=== PATIENT | male | born 1970 | race African-American/Black ===

== ENCOUNTER 2017-08-03 23:36 | Emergency (ER) | payer MEDICAID ==
[~2017-08-03] VITALS: Ht 175.3 cm; Wt 77.1 kg
[~2017-08-03 23:36] MED LIST: BENADRYL25 MG ORAL; LISINOPRIL20 MG ORAL; METOPROLOL SUCC25 MG ORAL; PAXIL10 MG ORAL; SEROQUEL200 MG ORAL; SIMVASTATIN20 MG ORAL
[2017-08-03 23:40] VITALS: BP 120/81
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
[2017-08-04] LABS: BASOPHILS % (AUTO) 2.1 % (0.0-2.0); EOSINOPHILS % (AUTO) 4.1 % (0.0-3.0); HEMATOCRIT 44.2 % (42.0-52.0); LYMPHOCYTES % (AUTO) 49.1 % (20.0-45.0); MEAN CORPUSCULAR VOLUME 94 FL (80-99); MONOCYTES % (AUTO) 8.2 % (1.0-10.0); NEUTROPHILS % (AUTO) 36.6 % (45.0-75.0); PLATELET COUNT 137 K/UL (150-450); RED BLOOD COUNT 4.68 M/UL (4.70-6.10); RED CELL DISTRIBUTION WIDTH 12.2 % (11.6-14.8); WHITE BLOOD COUNT 5.8 K/UL (4.8-10.8)
[2017-08-04] MEDS ORDERED: Heparin 5000 units/ml inj IV ONE
[2017-08-04 00:10] VITALS: BP 120/81
[2017-08-04 00:13] LABS: ANION GAP 5 mmol/L (5-15); BLOOD UREA NITROGEN 24 mg/dL (7-18); CALCIUM 9.5 MG/DL (8.5-10.1); CARBON DIOXIDE 29 MMOL/L (21-32); CHLORIDE 102 MMOL/L (98-107); CREATININE 1.6 MG/DL (0.55-1.30); POTASSIUM 3.8 MMOL/L (3.5-5.1); SODIUM 136 MMOL/L (136-145)
[2017-08-04 00:26] LABS: ALANINE AMINOTRANSFERASE 59 U/L (12-78); ALBUMIN 3.1 G/DL (3.4-5.0); ALBUMIN/GLOBULIN RATIO 0.7 (1.0-2.7); ALKALINE PHOSPHATASE 175 U/L (46-116); ASPARTATE AMINO TRANSFERASE 42 U/L (15-37); BILIRUBIN,TOTAL 0.2 MG/DL (0.2-1.0); CKMB 4.6 NG/ML (0.0-3.6); CREATINE KINASE 369 U/L (26-308)
--- NOTE | 2017-08-04 09:57 | Diagnostic Imaging Report ---
Indication: Chest pain Technique: One view of the chest Comparison: 08/09/2015 Findings: The heart is is borderline enlarged. The lungs and pleural spaces are clear. There is no significant interim change Impression: Borderline cardiomegaly. No acute process
--- NOTE | 2017-08-05 08:34 | Cardiology Report ---
APPROVED REPORT EKG Measurement Heart [id number] ID [id number] Normal sinus rhythm Right atrial enlargement Left ventricular hypertrophy with repolarization abnormality Prolonged QT Abnormal ECG
== END 2017-08-04 00:10 | disposition short-term general hospital (02) ==
LOC: EDBD 23:36 → EMR 23:51
DX: I21.3 ST elevation (STEMI) myocardial infarction of unspecified site (principal); R07.9 Chest pain, unspecified; I10 Essential (primary) hypertension; E11.9 Type 2 diabetes mellitus without complications; Z79.82 Long term (current) use of aspirin; Z95.5 Presence of coronary angioplasty implant and graft
CPT/HCPCS: 36415; 71045; 80053; 82550; 82553; 84484; 85025; 85730; 93005; 96374; 99284; J1644

== ENCOUNTER 2018-03-28 23:15 | Emergency (ER) | payer MEDICAID ==
[~2018-03-28] VITALS: Ht 175.3 cm; Wt 90.7 kg
[2018-03-28 23:25] VITALS: BP 171/91
[2018-03-28] MEDS ORDERED: LORazepam Inj 2mg/ml 1ml IV ONE (23:30)
[2018-03-29 00:13] LABS: ANION GAP 9 mmol/L (5-15); BLOOD UREA NITROGEN 9 mg/dL (7-18); CALCIUM 9.2 MG/DL (8.5-10.1); CARBON DIOXIDE 26 MMOL/L (21-32); CHLORIDE 105 MMOL/L (98-107); CREATININE 1.1 MG/DL (0.55-1.30); POTASSIUM 3.9 MMOL/L (3.5-5.1); SODIUM 140 MMOL/L (136-145)
[2018-03-29 00:16] LABS: BASOPHILS % (AUTO) 2.6 % (0.0-2.0); EOSINOPHILS % (AUTO) 5.3 % (0.0-3.0); HEMOGLOBIN 16.4 G/DL (14.2-18.0); LYMPHOCYTES % (AUTO) 50.9 % (20.0-45.0); MEAN CORPUSCULAR VOLUME 94 FL (80-99); MONOCYTES % (AUTO) 7.1 % (1.0-10.0); NEUTROPHILS % (AUTO) 34.1 % (45.0-75.0); PLATELET COUNT 145 K/UL (150-450); RED BLOOD COUNT 5.23 M/UL (4.70-6.10); RED CELL DISTRIBUTION WIDTH 11.8 % (11.6-14.8); WHITE BLOOD COUNT 6.2 K/UL (4.8-10.8)
[2018-03-29 00:18] LABS: ALANINE AMINOTRANSFERASE 105 U/L (12-78); ALBUMIN 3.2 G/DL (3.4-5.0); ALBUMIN/GLOBULIN RATIO 0.7 (1.0-2.7); ALKALINE PHOSPHATASE 150 U/L (46-116); ASPARTATE AMINO TRANSFERASE 71 U/L (15-37); BILIRUBIN,TOTAL 0.2 MG/DL (0.2-1.0)
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
[2018-03-29 02:00] VITALS: BP 145/93
[2018-03-29 07:35] VITALS: BP 132/84
[2018-03-29 12:10] LABS: APPEARANCE,URINE CLEAR; BILIRUBIN, URINE NEGATIVE (NEGATIVE); COLOR,URINE PALE YELLOW; GLUCOSE, URINE (UA) 4+ (NEGATIVE); KETONES,URINE NEGATIVE (NEGATIVE); LEUKOCYTE ESTERASE ,URINE NEGATIVE (NEGATIVE); NITRITE,URINE NEGATIVE (NEGATIVE); PH,URINE 8 (4.5-8.0); PROTEIN,URINE 3+ (NEGATIVE); UROBILINOGEN,URINE NORMAL MG/DL (0.0-1.0)
[2018-03-29 13:13] VITALS: BP 148/76
[2018-03-29 14:31] VITALS: BP 148/76
== END 2018-03-29 14:33 ==
LOC: EDBD 23:15 → EMR 23:57
DX: F14.10 Cocaine abuse, uncomplicated (principal); F10.129 Alcohol abuse with intoxication, unspecified; F29 Unspecified psychosis not due to a substance or known physiological condition; R44.0 Auditory hallucinations; I10 Essential (primary) hypertension; E11.9 Type 2 diabetes mellitus without complications; Z86.73 Personal history of transient ischemic attack (TIA), and cerebral infarction without residual deficits; I25.2 Old myocardial infarction; F20.9 Schizophrenia, unspecified
CPT/HCPCS: 36415; 80053; 80307; 80329; 81001; 85025; 96361; 96374; 99285

== ENCOUNTER 2019-06-02 05:17 | Inpatient (IN) | payer MEDICAID ==
[~2019-06-02] VITALS: Ht 175.3 cm; Wt 85.7 kg
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
--- NOTE | 2019-06-02 05:29 | NUR ---
ED Nurse Note: IV established on right AC with 20g. Blood drawn and sent to lab. Line patent and intact.
[2019-06-02] MEDS ORDERED: Acetaminophen 500mg (ES) tab ORAL ONE (05:30)
[2019-06-02] MEDS ORDERED: Tetracaine 0.5% Opth 4ml Soln LEFT EYE ONE (05:30)
[2019-06-02] MEDS ORDERED: Fluorescein Strips BOTH EYES ONE (05:30)
[2019-06-02] MEDS ORDERED: Tetanus/Diptheria/Pertussis IM ONE (05:30)
[2019-06-02] MEDS ORDERED: fentaNYL 100 mcg/2 mL IV ONE (05:45)
[2019-06-02 05:49] LABS: BASOPHILS % (AUTO) 0.9 % (0.0-2.0); EOSINOPHILS % (AUTO) 3.3 % (0.0-3.0); HEMATOCRIT 49.7 % (42.0-52.0); HEMOGLOBIN 16.4 G/DL (14.2-18.0); LYMPHOCYTES % (AUTO) 37.9 % (20.0-45.0); MEAN CORPUSCULAR VOLUME 95 FL (80-99); MONOCYTES % (AUTO) 6.9 % (1.0-10.0); PLATELET COUNT 157 K/UL (150-450); RED BLOOD COUNT 5.25 M/UL (4.70-6.10); WHITE BLOOD COUNT 5.8 K/UL (4.8-10.8)
--- NOTE | 2019-06-02 05:49 | NUR ---
ED Nurse Note: [employer] at bedside.
[2019-06-02 05:50] VITALS: BP 128/88
[2019-06-02 06:00] LABS: ANION GAP 8 mmol/L (5-15); BLOOD UREA NITROGEN 22 mg/dL (7-18); CALCIUM 9.1 MG/DL (8.5-10.1); CARBON DIOXIDE 25 MMOL/L (21-32); CHLORIDE 104 MMOL/L (98-107); CREATININE 1.4 MG/DL (0.55-1.30); POTASSIUM 4.8 MMOL/L (3.5-5.1); SODIUM 136 MMOL/L (136-145)
[2019-06-02 06:05] LABS: ALANINE AMINOTRANSFERASE 90 U/L (12-78); ALBUMIN 2.6 G/DL (3.4-5.0); ALBUMIN/GLOBULIN RATIO 0.6 (1.0-2.7); ALKALINE PHOSPHATASE 168 U/L (46-116); ASPARTATE AMINO TRANSFERASE 65 U/L (15-37); BILIRUBIN,TOTAL 0.4 MG/DL (0.2-1.0)
--- NOTE | 2019-06-02 06:05 | NUR ---
ED Nurse Note: Fentanyl 50mcg wasted with José Luis NIÑO.
--- NOTE | 2019-06-02 06:06 | NUR ---
ordnance engineering technician with XR at bedside Addendum: 06/02/19 at 0606 by [email or web address] ED Nurse Note: ordnance engineering technician with XR at bedside
--- NOTE | 2019-06-02 06:20 | NUR ---
ED Nurse Note: Patient going to CT accompanied by héctor hickman via wheelchair.
--- NOTE | 2019-06-02 06:58 | NUR ---
ED Nurse Note: Pt back from CT accompanied by meat grader via wheelchair. Pt on monitor, NAD, VSS. Will continue to monitor.
--- NOTE | 2019-06-02 07:08 | NUR ---
HAND-OFF: Report given to Odilia NIÑO.
[2019-06-02 07:15] VITALS: BP 136/84
--- NOTE | 2019-06-02 07:15 | NUR ---
ED Nurse Note: Received pt on bed lying on side lying position, asleep with no signs of any respiratory distress. Hooked to saturation diver.
--- NOTE | 2019-06-02 08:20 | NUR ---
ED Nurse Note: Xray at bedside.
--- NOTE | 2019-06-02 08:27 | NUR ---
ED Nurse Note: Xray done.
--- NOTE | 2019-06-02 08:45 | NUR ---
ED Nurse Note: ERMD at bedside. Eye exam done. Snack provided.
--- NOTE | 2019-06-02 09:13 | Diagnostic Imaging Report ---
Indication: Facial pain status post injury Technique: CT maxillofacial was performed utilizing automated exposure control without intravenous contrast material. Axial and coronal images were generated. CT dose: Total DLP 556.9 mGycm; CTDI vol a 4 mGy Comparison: None Findings: Marked left periorbital soft tissue swelling. There is also soft tissue swelling about the right frontoparietal scalp with some foci of subcutaneous gas suggesting laceration. There is also right infraorbital soft tissue swelling. There is a lucency at the left orbital floor suspicious for nondisplaced fracture (series 7 image #13) particularly given the layering hyperdense fluid/blood in the left maxillary sinus. There is soft tissue stranding with intraluminal fat suggesting of injury/mild contusion with possible small hematoma. The left globe retains its round shaped. There is mild right-sided proptosis. Extraocular muscles appear symmetric. Age indeterminate but possibly chronic fracture deformity of the right lamina papyracea. There is a nondisplaced fracture of the posterolateral wall of the right maxillary sinus and near complete opacification of the right maxillary sinus. The mandible is intact. IMPRESSION: * Marked left periorbital soft tissue swelling with associated intraorbital hemorrhage and mild left proptosis. Correlation with ophthalmic exam recommended. * Lucency at the left orbital floor suspicious for nondisplaced fracture (series 7 image #13). * Nondisplaced fracture of the posterolateral wall of the right maxillary sinus. * Age indeterminate fracture deformity of the right lamina papyracea. This corresponds with the preliminary report. The CT scanner at [facility] is accredited by the [employer] and the scans are performed using protocols designed to limit radiation exposure to as low as reasonably achievable to attain images of sufficient resolution adequate for diagnostic evaluation.
--- NOTE | 2019-06-02 09:13 | Diagnostic Imaging Report ---
Indication: Headache/pain status post injury/trauma Technique: Continuous helical CT scanning of the head was performed utilizing automated exposure control without intravenous contrast material. Axial and coronal reconstructions were obtained. Comparison: None CT dose: Total DLP 1394.9 mGycm; CTDI vol 62.7 mGy Findings: There is no acute intracranial hemorrhage, mass effect or shift of the midline structures. There is a small focus of encephalomalacia in the right frontal lobe which may be due to chronic ischemia/infarct or chronic injury. The ventricles, cisterns and sulci are within normal limits for age. There is right frontoparietal soft tissue swelling with some foci of subcutaneous gas suggesting laceration. Correlation with physical exam recommended. Marked left periorbital soft tissue swelling is noted with some intraorbital hemorrhage and mild left-sided proptosis. Mastoid air cells are clear. No depressed calvarial fracture identified. There is a chronic appearing fracture deformity of the right medial orbital wall/lamina papyracea. Paranasal sinus disease noted with mucosal thickening and partial opacification of ethmoid air cells and frontal sinuses. IMPRESSION: Marked left periorbital soft tissue swelling with associated intraorbital hemorrhage and mild left proptosis. Correlation with ophthalmic exam recommended. Mild right frontoparietal scalp soft tissue swelling with likely associated laceration. Correlation with physical exam recommended. No acute depressed skull fracture. Chronic appearing fracture deformity of the right lamina papyracea. Paranasal sinus disease. No evidence of acute intracranial hemorrhage, mass effect or cortical edema. Small focus of encephalomalacia in the right frontal lobe which may be related to chronic infarct or injury. Correlate with clinical history. The CT scanner at [facility] is accredited by the [employer] and the scans are performed using protocols designed to limit radiation exposure to as low as reasonably achievable to attain images of sufficient resolution adequate for diagnostic evaluation.
--- NOTE | 2019-06-02 09:18 | Diagnostic Imaging Report ---
Indication: Neck pain status post injury Technique: CT cervical spine spine was performed utilizing automated exposure control without intravenous contrast material. Axial and sagittal and coronal images were generated. CT dose: Total DLP 274.1 mGycm; CTDI vol and 0.3 mGy Comparison: None Findings: No acute cervical spine fracture is identified. There are multilevel discogenic degenerative changes of the cervical spine, overall mild severity. Degenerative changes are manifest by disc space narrowing, endplate sclerosis and productive changes as well as mild multilevel facet and uncovertebral joint hypertrophy. Degenerative changes result in varying degrees of central canal and foraminal stenosis without focus of high-grade bony central canal or bony foraminal sinuses. There is mild to moderate bilateral foraminal narrowing at C3-C4 related to facet arthropathy. These note that the central cord, disks and nerve roots are better evaluated on MRI, which can be obtained for more sensitive evaluation as clinically indicated. Imaged portions of the airway are patent. Imaged lung apices are grossly clear. Imaged thyroid unremarkable. There are atherosclerotic vascular calcifications. IMPRESSION: Degenerative changes of the cervical spine. No evidence of acute cervical spine fracture. The CT scanner at [facility] is accredited by the [employer] and the scans are performed using protocols designed to limit radiation exposure to as low as reasonably achievable to attain images of sufficient resolution adequate for diagnostic evaluation.
[2019-06-02 09:35] VITALS: BP 145/82
[2019-06-02] MEDS ORDERED: Morphine Sulfate 4mg/ml Inj (IV USE ONLY) IVP ONE (10:45)
[2019-06-02 11:45] VITALS: BP 89/59
--- NOTE | 2019-06-02 13:45 | NUR ---
TRANSFER TO FLOOR: Patient transferred to as ordered, per Dr. Yañez . Report given to SALINAS Gaona. Belongings and medications given to receiving nurse. Family and or S/O informed of transfer.
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
[2019-06-02] MEDS ORDERED: UNOBMED (14:04)
[2019-06-02] MEDS ORDERED: D5 1/2NS 1,000 ML IV SCH (14:30)
--- NOTE | 2019-06-02 14:30 | NUR ---
NURSE NOTES: Page Dr. Yañez. Admission order received, entered, noted, and carried out. MD made aware patient stated history seizure, DM. Per MD call patient pharmacy to get reconcile med. Called [facility] tele: [phone] ext [phone], faxed requesting foam [phone].
[2019-06-02] MEDS: Morphine Sulfate 2mg/ml Inj(IV/IM USE ONLY) IVP PRN ×2 (15:24→20:48)
[2019-06-02 16:00] VITALS: BP 130/81
[2019-06-02] MEDS: NovoLOG Insulin Flexpen SUBQ SCH ×2 (16:27→20:49)
--- NOTE | 2019-06-02 16:40 | NUR ---
NURSE NOTES: Dr. Yañez made aware patient BS 310, history DM, eating well. Per MD change D5 1/2NS to 1/2NS. Order noted, entered, carried out. Will continue to monitor.
--- NOTE | 2019-06-02 18:00 | NUR ---
NURSE NOTES: Dr. Goode made aware of troponin level elevated from 0.023 to 0.067. No new order at this time. Will continue to monitor.
--- NOTE | 2019-06-02 18:13 | Diagnostic Imaging Report ---
Indication: Chest pain Technique: XRAY Chest 1v Comparison: 08/03/2017 Findings: Cardiomegaly is stable. Mediastinal contours are sharp. There is no focal airspace consolidation. No pleural effusion or pneumothorax. No evidence to suggest pulmonary edema. No acute osseous abnormality appreciated. Impression: No radiographic evidence of acute cardiopulmonary disease. Stable borderline cardiomegaly.
--- NOTE | 2019-06-02 19:54 | NUR ---
HAND-OFF: Report given to SALINAS Segovia.
--- NOTE | 2019-06-02 19:56 | NUR ---
NURSE NOTES: Received patient from SALINAS Gaona. Patient asleep in bed comfortably. No signs of pain, distress, or shortness of breath. Patient ambulates and able to make needs known. IV site checked, no signs of redness, bleeding, or infiltration noted, 0.45% NS running at 60 ml/hr. Seizure precautions in place, side rails padded and suction at the bedside. Bed in lowest position, side rails up x2, brakes on, and call light within reach. Will continue with plan of care.
[2019-06-02 20:00] VITALS: BP 142/90
--- NOTE | 2019-06-02 21:31 | History and Physical Report ---
DATE OF ADMISSION: 06/02/2019 CONSULTANTS: 1. Ed Goode M.D. 2. Junior Garland M.D. 3. Ke Sanchez M.D. CHIEF COMPLAINT: Chest pain, diabetes, and periorbital hematoma. BRIEF HISTORY: This is a 49-year-old male, who lives at home, presents with history of sharp chest pain, intermittent, no loss of consciousness, came to [facility], diagnosed with the above, and admitted to telemetry for further care. Currently, calm in bed. No complaint. No chest pain. No shortness of breath. No nausea, vomiting, or diarrhea. PAST MEDICAL HISTORY: Includes STEMI, diabetes, and seizures. PAST SURGICAL HISTORY: Stomach cyst. MEDICATIONS: Include insulin, morphine, and Tylenol. ALLERGIES: Denies. SOCIAL HISTORY: Positive smoke. Positive alcohol. Positive cocaine use. PHYSICAL EXAMINATION: GENERAL: Calm in bed, oriented x3, in no acute distress. VITAL SIGNS: Temperature 97 degrees, pulse 89, respirations 19, and blood pressure 137/101. CARDIOVASCULAR: No murmurs. LUNGS: Distant and clear. ABDOMEN: Bowel sounds positive. Nontender. Nondistended. EXTREMITIES: No cyanosis. No edema. LABORATORY DATA: Laboratories at this time show CBC is normal. BMP show BUN and creatinine are 22 and 1.4. Glucose 186. Troponin 0.023. Albumin 2.6. INR is 1.0. ASSESSMENT: 1. Chest pain. 2. Diabetes. 3. History of STEMI. 4. Periorbital hematoma. 5. Drug abuse. 6. Malnutrition. 7. Seizure. PLAN: 1. Blood pressure, blood sugar, and seizure control. 2. Dietary followup. 3. Troponin q.8 h. x3. 4. EKG in the a.m. 5. Detox. 6. Resume home medications. 7. PT and dietary evaluation. Sharath Yañez D.O. DR: SHRUTHI JOB#: [id number] CC:
--- NOTE | 2019-06-02 21:55 | NUR ---
NURSE NOTES: Paged Dr. Yañez regarding patient's complaint of anxiety and trouble sleeping. Awaiting callback. Will continue with plan of care.
[2019-06-02] MEDS: Zolpidem 5mg tab ORAL PRN (23:16)
--- NOTE | 2019-06-02 23:39 | Cardiology Progress Note ---
Assessment/Plan Assessment/Plan The patient is seen and examined, full consult note is dictated. Objective Last 24 Hour Vital Signs Date Time Temp Pulse Resp B/P (MAP) Pulse Ox O2 Delivery O2 Flow Rate FiO2 06/02/19 21:00 Room Air 06/02/19 20:00 80 06/02/19 20:00 99.2 85 18 142/90 (107) 95 06/02/19 16:00 75 06/02/19 16:00 97.0 100 18 130/81 (97) 95 06/02/19 14:12 Room Air 06/02/19 13:45 97.8 79 19 137/101 100 Room Air 06/02/19 11:45 98.6 79 17 89/59 100 Room Air 06/02/19 09:35 98.4 81 18 145/82 100 Room Air 06/02/19 07:15 98.8 73 19 136/84 100 Room Air 06/02/19 06:13 98.6 06/02/19 06:00 98.6 06/02/19 05:50 98.6 78 18 128/88 98 Room Air 06/02/19 05:18 98.6 80 18 128/88 (101) 98 Intake and Output 06/01/19 06/02/19 19:00 07:00 Intake Total 0 ml Balance 0 ml Intake Oral 0 ml Laboratory Tests Test 06/02/19 05:22 06/02/19 15:45 06/02/19 22:40 White Blood Count 5.8 K/UL (4.8-10.8) Red Blood Count 5.25 M/UL (4.70-6.10) Hemoglobin 16.4 G/DL (14.2-18.0) Hematocrit 49.7 % (42.0-52.0) Mean Corpuscular Volume 95 FL (80-99) Mean Corpuscular Hemoglobin 31.2 PG (27.0-31.0) H Mean Corpuscular Hemoglobin Concent 33.0 G/DL (32.0-36.0) Red Cell Distribution Width 11.0 % (11.6-14.8) L Platelet Count 157 K/UL (150-450) Mean Platelet Volume 10.3 FL (6.5-10.1) H Neutrophils (%) (Auto) 51.0 % (45.0-75.0) Lymphocytes (%) (Auto) 37.9 % (20.0-45.0) Monocytes (%) (Auto) 6.9 % (1.0-10.0) Eosinophils (%) (Auto) 3.3 % (0.0-3.0) H Basophils (%) (Auto) 0.9 % (0.0-2.0) Prothrombin Time 10.7 SEC (9.30-11.50) Prothromb Time International Ratio 1.0 (0.9-1.1) Activated Partial Thromboplast Time 24 SEC (23-33) Sodium Level 136 MMOL/L (136-145) Potassium Level 4.8 MMOL/L (3.5-5.1) Chloride Level 104 MMOL/L (98-107) Carbon Dioxide Level 25 MMOL/L (21-32) Anion Gap 8 mmol/L (5-15) Blood Urea Nitrogen 22 mg/dL (7-18) H Creatinine 1.4 MG/DL (0.55-1.30) H Estimat Glomerular Filtration Rate > 60 mL/min (>60) Glucose Level 186 MG/DL (74-106) H Calcium Level 9.1 MG/DL (8.5-10.1) Total Bilirubin 0.4 MG/DL (0.2-1.0) Aspartate Amino Transf (AST/SGOT) 65 U/L (15-37) H Alanine Aminotransferase (ALT/SGPT) 90 U/L (12-78) H Alkaline Phosphatase 168 U/L (46-116) H Troponin I 0.023 ng/mL (0.000-0.056) 0.067 ng/mL (0.000-0.056) 0.181 ng/mL (0.000-0.056) Total Protein 7.1 G/DL (6.4-8.2) Albumin 2.6 G/DL (3.4-5.0) L Globulin 4.5 g/dL Albumin/Globulin Ratio 0.6 (1.0-2.7) L Microbiology Date/Time Source Procedure Growth Status 06/02/19 09:00 Rectum Received Ed Goode MD Jun 02, 2019 23:39
--- NOTE | 2019-06-02 23:39 | NUR ---
NURSE NOTES: Dr. Goode notified of patient's troponin level of 0.181. Dr. Goode will examine patient. Will continue with plan of care.
[2019-06-03] VITALS: BP 146/93
--- NOTE | 2019-06-03 | NUR ---
NURSE NOTES: Dr. Goode examined patient and put in new orders. Will continue with plan of care.
[2019-06-03] MEDS: Enoxaparin 80mg Inj SUBQ SCH ×3 (00:23→20:46)
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
[2019-06-03] MEDS: Morphine Sulfate 2mg/ml Inj(IV/IM USE ONLY) IVP PRN ×4 (03:45→20:29)
[2019-06-03 04:00] VITALS: BP 151/99
--- NOTE | 2019-06-03 05:44 | NUR ---
NURSE NOTES: Paged Dr. Yañez regarding patient's request for breathing treatment, reports regularly taking albuterol inhaler at home. No shortness of breath noted, will continue to monitor.
[2019-06-03] MEDS: NovoLOG Insulin Flexpen SUBQ SCH ×4 (06:40→20:45)
--- NOTE | 2019-06-03 07:20 | NUR ---
NURSE NOTES: Received orders from Dr. Yañez regarding albuterol inhaler. Noted and carried out. Will continue with plan of care.
--- NOTE | 2019-06-03 07:28 | NUR ---
HAND-OFF: Report given to SALINAS Coon. Patient in stable condition, pland of care endorsed.
[2019-06-03 07:30] LABS: BASOPHILS % (AUTO) 1.9 % (0.0-2.0); EOSINOPHILS % (AUTO) 5.4 % (0.0-3.0); HEMATOCRIT 43.4 % (42.0-52.0); HEMOGLOBIN 14.5 G/DL (14.2-18.0); LYMPHOCYTES % (AUTO) 51.9 % (20.0-45.0); MEAN CORPUSCULAR VOLUME 93 FL (80-99); MONOCYTES % (AUTO) 11.6 % (1.0-10.0); NEUTROPHILS % (AUTO) 29.2 % (45.0-75.0); PLATELET COUNT 158 K/UL (150-450); RED BLOOD COUNT 4.66 M/UL (4.70-6.10); RED CELL DISTRIBUTION WIDTH 10.8 % (11.6-14.8); WHITE BLOOD COUNT 5.3 K/UL (4.8-10.8)
[2019-06-03 07:39] LABS: ANION GAP 7 mmol/L (5-15); BLOOD UREA NITROGEN 18 mg/dL (7-18); CALCIUM 8.3 MG/DL (8.5-10.1); CARBON DIOXIDE 26 MMOL/L (21-32); CHLORIDE 105 MMOL/L (98-107); CREATININE 1.3 MG/DL (0.55-1.30); POTASSIUM 3.9 MMOL/L (3.5-5.1); SODIUM 138 MMOL/L (136-145)
[2019-06-03 08:00] VITALS: BP 151/101
[2019-06-03] MEDS: Aspirin EC 81mg tab ORAL SCH (09:01)
--- NOTE | 2019-06-03 10:20 | NUR ---
PT EVALUATION NOTE Patient seen for initial evaluation. Patient presents with generalized weakness and impaired balance which affects patient's ability to perform mobility tasks safely. Patient also c/o increased pain with mobility. Patient requires SBA for bed mobility transfers, CGA for ambulation due to unsteady gait. Ambulation distance limited to 25 ft due to pain. Patient will benefit from skilled inpatient PT intervention to address strength, balance and safety for improved level of functional mobility. Recommend discharge home once medically cleared by MD. No DME needs anticipated at this time. Addendum: 06/03/19 at 1255 by VANCE MAGAÑA PT Amended: Links added.
[2019-06-03 12:00] VITALS: BP 146/93
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
--- NOTE | 2019-06-03 15:33 | NUR ---
TRANSFER UPDATE CLINICALS FAXED TO [facility] CC F: [phone] HMO WILL NEED TO APPROVE
[2019-06-03 15:46] VITALS: BP 149/103
--- NOTE | 2019-06-03 19:31 | NUR ---
HAND-OFF: Report given to CHAD NIÑO.
--- NOTE | 2019-06-03 19:35 | NUR ---
NURSE NOTES: Received patient from SALINAS Coon. Patient resting comfortably in bed, no signs of distress, shortness of breath, or pain noted. Patient ambulates and able to make needs known. IV site checked, intact and patent, no signs of bleeding, infiltration, or redness noted. 0.45% NS running at 60 ml/hr. Seizure precautions in place, side rails padded and suction at the bedside. Fall education provided. Bed in lowest position, brakes on, side rails up x2, and call light within reach. Will continue with plan of care.
[2019-06-03 20:00] VITALS: BP 154/92
[2019-06-03] MEDS: Atorvastatin 80mg tab ORAL SCH (20:29)
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
--- NOTE | 2019-06-03 20:46 | NUR ---
NURSE NOTES: Patient refused Lovenox, risks and benefits explained. Will continue to monitor.
[2019-06-03] MEDS: Albuterol 90mcg Inhaler 8gm INH PRN (20:48)
--- NOTE | 2019-06-03 20:50 | NUR ---
NURSE NOTES: Paged Dr. Yañez regarding patient's request for PRN bowel movement medications and anxiety/insomnia medication. Awaiting callback. Will continue to monitor.
--- NOTE | 2019-06-03 21:04 | NUR ---
NURSE NOTES: Dr. Goode called back and would like to continue with transferring patient to ICU for amiodarone drip. Will continue with plan of care. Addendum: 06/03/19 at 2106 by Juliette Mariscal RN WRONG PATIENT.
--- NOTE | 2019-06-03 22:00 | NUR ---
NURSE NOTES: Received orders from Dr. Yañez for bowel movement medications. Noted and carried out.
[2019-06-03] MEDS: Zolpidem 5mg tab ORAL PRN (22:08)
[2019-06-03] MEDS ORDERED: Docusate 100mg cap ORAL PRN (22:30)
[2019-06-04] VITALS: BP 152/93
[2019-06-04] MEDS: Morphine Sulfate 2mg/ml Inj(IV/IM USE ONLY) IVP PRN ×4 (06:11→19:57)
[2019-06-04] MEDS: NovoLOG Insulin Flexpen SUBQ SCH ×4 (06:29→20:07)
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
--- NOTE | 2019-06-04 07:30 | NUR ---
HAND-OFF: Report given to SALINAS Palm. Patient in stable condition and plan of care endorsed.
--- NOTE | 2019-06-04 07:30 | NUR ---
NURSE NOTES: Report received from Florin NIÑO. Pt alert and oriented x4 and able to make needs known. Bed in lowest position and locked. Side railsx2 up for safety. IV site in RAC 20G running with 60cc/hr patent and asymptomatic. No c/o chest pain of SOB. But c/o of inability to sleep. Will page Dr. Yañez for follow up. Will continue to plan of care.
[2019-06-04] MEDS: Albuterol ud Inhalation HHN SCH ×4 (07:37→19:30)
[2019-06-04 07:56] LABS: BASOPHILS % (AUTO) 1.3 % (0.0-2.0); EOSINOPHILS % (AUTO) 5.7 % (0.0-3.0); HEMATOCRIT 45.5 % (42.0-52.0); HEMOGLOBIN 15.5 G/DL (14.2-18.0); LYMPHOCYTES % (AUTO) 49.4 % (20.0-45.0); MEAN CORPUSCULAR VOLUME 93 FL (80-99); MONOCYTES % (AUTO) 10.4 % (1.0-10.0); NEUTROPHILS % (AUTO) 33.2 % (45.0-75.0); PLATELET COUNT 150 K/UL (150-450); RED CELL DISTRIBUTION WIDTH 11.1 % (11.6-14.8); WHITE BLOOD COUNT 5.4 K/UL (4.8-10.8)
[2019-06-04 08:00] VITALS: BP 186/65
[2019-06-04 08:21] LABS: ANION GAP 6 mmol/L (5-15); BLOOD UREA NITROGEN 14 mg/dL (7-18); CALCIUM 8.8 MG/DL (8.5-10.1); CARBON DIOXIDE 27 MMOL/L (21-32); CHLORIDE 105 MMOL/L (98-107); CREATININE 1.3 MG/DL (0.55-1.30); POTASSIUM 4.1 MMOL/L (3.5-5.1); SODIUM 138 MMOL/L (136-145)
[2019-06-04] MEDS: Aspirin EC 81mg tab ORAL SCH (08:55)
[2019-06-04] MEDS: Enoxaparin 80mg Inj SUBQ SCH ×2 (09:01→20:06)
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
--- NOTE | 2019-06-04 09:50 | NUR ---
NURSE NOTES: Dr. Yañez paged for meds for insomnia and possible d/c of IV hydration due to EF 45-50%. Awaiting for reply
--- NOTE | 2019-06-04 09:53 | NUR ---
TRANSFER UPDATE CONTACTED [facility] YESTERDAY AND AGAIN THIS MORNING REGARDING TRANSFER FOR CARDIAC CATH LEFT [facility] FOR [facility] ANABELLA SCHAEFER T: [phone].....AWAITING RETURN CALL CLINICALS WERE FAXED TO [facility]- YESTERDAY
[2019-06-04] MEDS: Milk of Magnesia 30ml Ud ORAL PRN (10:39)
[2019-06-04] MEDS: Albuterol 90mcg Inhaler 8gm INH PRN (11:14)
[2019-06-04 12:00] VITALS: BP 154/72
--- NOTE | 2019-06-04 12:47 | NUR ---
TRANSFER UPDATE SPOKE WITH SILVANO AT [facility] WHO STATED CHARI NEEDS TO BE CONTACTED REGARDING TRANSFER CALLED CHARI @ [phone] AND SPOKE WITH NILAY WHO STATED SHE WILL CONTACT THE APPROPRIATE MANAGER AMBULATORY AND HAVE THEM CONTACT THIS MANAGER AMBULATORY Addendum: 06/04/19 at 1533 by COOKIE ORTEZ LVN LVN SPOKE WITH CHARI MANAGER AMBULATORY RYAN @ [phone] [id number] PROVIDED HER WITH DR PYLE PHONE NUMBER FOR TO CONVERSATION STILL DO NOT HAVE APPROVAL/AUTHORIZATION FOR TRANSFER
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
[2019-06-04 16:00] VITALS: BP 171/100
--- NOTE | 2019-06-04 16:49 | NUR ---
TRANSFER UPDATE JUST RECEIVED CALL FROM RYAN MARCELINO GIVING AUTHORIZATION FOR TRANSFER TO [facility] CC FOR HEART CATH TRANSFER AUTHORIZATION FOR [facility] IS [id number] AUTH FOR [facility] IS [id number] SPOKE WITH BED CONTROL PERSON, MANJULA, AT [facility] AND PROVIDED HER WITH AUTHORIZATION DUE TO THE TIME CARDIAC ACTH WILL NOT BE DONE UNTIL FRIDAY MESSAGE LEFT FOR DR PYLE REGARDING ABOVE
--- NOTE | 2019-06-04 19:10 | NUR ---
NURSE NOTES: Received report from SALINAS Palm. Patient is awake, lying in semi bishop's; resting comfortably. A/Ox4. Able to make needs known. Denies pain at this time. No signs of acute distress noted. Checked IV site and flushed. No signs of erythema, bleeding or infiltration noted. Bed at lowest position, brakes on, siderailsx2. Call light within reach. Will continue to monitor.
--- NOTE | 2019-06-04 19:12 | NUR ---
HAND-OFF: Report given to Tabatha NIÑO. Pt remains stable.
[2019-06-04 20:00] VITALS: BP 178/97
[2019-06-04] MEDS: Atorvastatin 80mg tab ORAL SCH (20:05)
--- NOTE | 2019-06-04 22:43 | NUR ---
NURSE NOTES: Received report from SALINAS Palm. Patient is awake, lying in semi bishop's; resting comfortably. A/Ox4. Able to make needs known. Denies pain at this time. No signs of acute distress noted. Checked IV site and flushed. No signs of erythema, bleeding or infiltration noted. Bed at lowest position, brakes on, siderailsx2. Call light within reach. Will continue to monitor. Addendum: 06/04/19 at 2684 by Tabatha Reyna RN Wrong time
--- NOTE | 2019-06-04 23:52 | Cardiology Progress Note ---
Assessment/Plan Assessment/Plan 1. Non-ST elevation myocardial infarction, in view of coronary artery disease and STEMI in the past, requires to transfer to a facility with cardiac odd job laborer amenities. Continue DAPT. DC lovenox. Continue atorvastatin 80 and metoprolol for double-product control. 2. History of diabetes mellitus, continue aspirin and statin. 3. History of hypertension, continue with metoprolol. Subjective Subjective Sinus rhythm at rate of 76. Objective Last 24 Hour Vital Signs Date Time Temp Pulse Resp B/P (MAP) Pulse Ox O2 Delivery O2 Flow Rate FiO2 06/04/19 21:57 98.8 06/04/19 21:00 Room Air 06/04/19 20:27 98.8 06/04/19 20:05 76 178/97 06/04/19 20:04 178/97 06/04/19 20:00 99.0 75 16 178/97 (124) 99 06/04/19 20:00 81 06/04/19 19:33 68 20 97 Room Air 21 06/04/19 19:33 70 20 99 Room Air 21 67 20 97 06/04/19 17:34 70 171/100 06/04/19 16:00 98.8 70 20 171/100 (123) 99 06/04/19 16:00 66 06/04/19 12:00 64 06/04/19 12:00 97.1 59 20 154/72 (99) 99 06/04/19 11:18 81 20 98 Room Air 21 06/04/19 11:16 81 22 98 Room Air 21 06/04/19 11:16 81 20 98 Room Air 21 06/04/19 09:00 Room Air 06/04/19 08:55 70 186/65 06/04/19 08:11 Room Air 21 06/04/19 08:00 99.5 70 20 186/65 (105) 98 06/04/19 08:00 76 06/04/19 04:00 88 06/04/19 00:00 97.8 84 22 152/93 (112) 95 06/04/19 00:00 73 Intake and Output 06/03/19 06/04/19 19:00 07:00 Intake Total 480 ml Output Total 900 ml Balance -420 ml Intake Oral 480 ml Output Urine Total 900 ml # Voids 4 2D Echo: LVEF 65%, RVSP 53 mmHg, Mild MR, Grade I LVDD Laboratory Tests Test 06/04/19 05:54 White Blood Count 5.4 K/UL (4.8-10.8) Red Blood Count 4.90 M/UL (4.70-6.10) Hemoglobin 15.5 G/DL (14.2-18.0) Hematocrit 45.5 % (42.0-52.0) Mean Corpuscular Volume 93 FL (80-99) Mean Corpuscular Hemoglobin 31.6 PG (27.0-31.0) H Mean Corpuscular Hemoglobin Concent 34.1 G/DL (32.0-36.0) Red Cell Distribution Width 11.1 % (11.6-14.8) L Platelet Count 150 K/UL (150-450) Mean Platelet Volume 9.5 FL (6.5-10.1) Neutrophils (%) (Auto) 33.2 % (45.0-75.0) L Lymphocytes (%) (Auto) 49.4 % (20.0-45.0) H Monocytes (%) (Auto) 10.4 % (1.0-10.0) H Eosinophils (%) (Auto) 5.7 % (0.0-3.0) H Basophils (%) (Auto) 1.3 % (0.0-2.0) Sodium Level 138 MMOL/L (136-145) Potassium Level 4.1 MMOL/L (3.5-5.1) Chloride Level 105 MMOL/L (98-107) Carbon Dioxide Level 27 MMOL/L (21-32) Anion Gap 6 mmol/L (5-15) Blood Urea Nitrogen 14 mg/dL (7-18) Creatinine 1.3 MG/DL (0.55-1.30) Estimat Glomerular Filtration Rate > 60 mL/min (>60) Glucose Level 227 MG/DL (74-106) H Calcium Level 8.8 MG/DL (8.5-10.1) Microbiology Date/Time Source Procedure Growth Status 06/02/19 08:25 Nasal Nares MRSA Culture - Final NO METHICILLIN RESISTANT STAPH AUREUS... Complete 06/02/19 09:00 Rectum - Final NO CARBAPENEM-RESISTANT ENTEROBACTERI... Complete 06/02/19 08:20 Rectum VRE Culture - Final NO VANCOMYCIN RESISTANT ENTEROCOCCUS ... Complete Objective HEENT: Normocephalic. Anicteric. Left eye edema, shut. Swelling of the lower and upper eyelids. Bilateral eye visual acuity within normal limits. NECK: JVP less than 5 cm. No carotid bruits. Carotid upstrokes 2+ bilaterally. CARDIOVASCULAR: Normal S1, S2. Regular rate and rhythm. No murmurs, gallops, or rubs. PMI is at fourth intercostal space in the midclavicular line. LUNGS: Clear to auscultation bilaterally. ABDOMEN: Soft, nontender, and nondistended. No hepatosplenomegaly. Positive bowel sounds. EXTREMITIES: No evidence of edema, clubbing, or cyanosis. Ed Goode MD Jun 04, 2019 23:52
[2019-06-05] VITALS: BP 145/99
[2019-06-05] MEDS: Albuterol ud Inhalation HHN SCH ×4 (01:27→20:06)
[2019-06-05] MEDS: Morphine Sulfate 2mg/ml Inj(IV/IM USE ONLY) IVP PRN ×5 (02:16→21:56)
[2019-06-05 04:00] VITALS: BP 137/95
--- NOTE | 2019-06-05 04:40 | NUR ---
NURSE NOTES: Resting throughout the night. No significant change of condition. Will continue to monitor.
[2019-06-05] MEDS: NovoLOG Insulin Flexpen SUBQ SCH ×4 (06:36→20:59)
--- NOTE | 2019-06-05 07:00 | NUR ---
HAND-OFF: Report given to SALINAS Gallagher. Plan of care endorsed.
--- NOTE | 2019-06-05 07:10 | NUR ---
NURSE NOTES: Received report from SALINAS Mays. The patient is resting on the bed without acute distress or shortness of breath. The patient's bed in the lowest position, call light in reach, and fall and aspiration precaution reinforced. IV site intact and patent. Will confirm Dr. Goode regarding DAPT therapy. Notified the charge nurse and nursing ice house supervisor that the patient has case management order to [facility] for left heart cath and coronary angio and needs to be followed up with the caser in. Will continue plan of care.
[2019-06-05 07:43] LABS: BASOPHILS % (AUTO) 1.4 % (0.0-2.0); EOSINOPHILS % (AUTO) 4.8 % (0.0-3.0); HEMATOCRIT 45.4 % (42.0-52.0); HEMOGLOBIN 15.1 G/DL (14.2-18.0); LYMPHOCYTES % (AUTO) 50.8 % (20.0-45.0); MEAN CORPUSCULAR VOLUME 93 FL (80-99); MONOCYTES % (AUTO) 7.4 % (1.0-10.0); NEUTROPHILS % (AUTO) 35.6 % (45.0-75.0); PLATELET COUNT 129 K/UL (150-450); RED BLOOD COUNT 4.86 M/UL (4.70-6.10); WHITE BLOOD COUNT 3.7 K/UL (4.8-10.8)
[2019-06-05 08:00] VITALS: BP 142/95
[2019-06-05 08:04] LABS: ANION GAP 5 mmol/L (5-15); BLOOD UREA NITROGEN 20 mg/dL (7-18); CALCIUM 8.9 MG/DL (8.5-10.1); CARBON DIOXIDE 26 MMOL/L (21-32); CHLORIDE 104 MMOL/L (98-107); CREATININE 1.4 MG/DL (0.55-1.30); POTASSIUM 4.1 MMOL/L (3.5-5.1); SODIUM 135 MMOL/L (136-145)
--- NOTE | 2019-06-05 08:30 | NUR ---
NURSE NOTES: Clarification made regarding DAPT therapy with Dr. Goode. Carried out the order. The patient is stable without acute distress or shortness of breath. Will continue plan of care.
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
[2019-06-05] MEDS ORDERED: Enoxaparin 40mg Inj SUBQ SCH (09:00)
--- NOTE | 2019-06-05 09:00 | NUR ---
NURSE NOTES: The charge nurse contacted the director case management to get update regarding transferring order to [facility] for cardiac cath. Per director case management, they are still working on the case. The patient is stable without acute distress or shortness of breath. Will continue plan of care.
[2019-06-05] MEDS: Aspirin EC 81mg tab ORAL SCH (09:02)
[2019-06-05] MEDS: Metoprolol Tartrate 50mg tab ORAL SCH ×2 (09:02→20:49)
[2019-06-05] MEDS: Enoxaparin 40mg Inj SUBQ SCH (09:04)
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
--- NOTE | 2019-06-05 10:20 | NUR ---
PT NOTE: PT interventions withheld per SALINAS Gallagher, due to cardiac precautions. Please follow up tomorrow.
--- NOTE | 2019-06-05 10:27 | NUR ---
NURSE NOTES: Due to 3 Lead EKG rhythm change, 12 lead EKG taken per order. Notified to Dr. Goode regarding EKG result. No new order yet. Will continue plan of care.
[2019-06-05 12:00] VITALS: BP 136/77
--- NOTE | 2019-06-05 13:30 | NUR ---
NURSE NOTES: No new order from Dr. Goode. No new update from nurse case manager or charge nurse. The patient is stable without acute distress or shortness of breath. Will continue plan of care.
[2019-06-05 16:00] VITALS: BP 122/69
--- NOTE | 2019-06-05 18:00 | NUR ---
NURSE NOTES: The patient is stable without acute distress or shortness of breath. No new order from Dr. Goode. No update from vocational case manager regarding transfer to [facility] for cardiac cath. Contacted vocational case manager for update of [facility], but no arrangement made yet. Will continue plan of care.
--- NOTE | 2019-06-05 19:15 | NUR ---
HAND-OFF: Report given to SALINAS Lloyd. The patient is sleeping on the bed without acute distress or shortness of breath. The patient's bed in the lowest position, call light in reach, and fall, aspiration, and seizure precaution reinforced. IV site intact and patent. Still waiting for status update for transferring to [facility]. Endorsed plan of care.
--- NOTE | 2019-06-05 19:30 | NUR ---
NURSE NOTES: Received patient from dayshift nurse. Patient in bed, on room air, no signs of respiratory distress. Bed in low position, locked, bed alarm on, call light within reach.
[2019-06-05 20:00] VITALS: BP 150/91
[2019-06-05] MEDS: Atorvastatin 80mg tab ORAL SCH (20:49)
[2019-06-05] MEDS: Guaifenesin/DM 10ml syrup ORAL PRN (20:50)
[2019-06-05] MEDS: Zolpidem 5mg tab ORAL PRN (22:04)
--- NOTE | 2019-06-05 23:52 | Cardiology Progress Note ---
Assessment/Plan Assessment/Plan 1. Non-ST elevation myocardial infarction, in view of coronary artery disease and STEMI in the past, requires to transfer to a facility with cardiac labor and employment paralegal amenities. Continue DAPT. Off lovenox. Continue atorvastatin 80 and metoprolol for double-product control. 2. History of diabetes mellitus, continue aspirin and statin. 3. History of hypertension, optimize metoprolol. Subjective Subjective Sinus rhythm at rate of 83. Objective Last 24 Hour Vital Signs Date Time Temp Pulse Resp B/P (MAP) Pulse Ox O2 Delivery O2 Flow Rate FiO2 06/05/19 20:49 83 150/91 06/05/19 20:06 83 18 96 Room Air 21 06/05/19 20:06 87 18 100 Room Air 21 83 16 96 06/05/19 20:00 98.7 87 18 150/91 (110) 94 06/05/19 16:00 71 06/05/19 16:00 96.6 64 18 122/69 (86) 96 06/05/19 14:21 89 18 100 Room Air 21 86 16 95 06/05/19 12:00 73 06/05/19 12:00 97.7 70 18 136/77 (96) 99 06/05/19 09:03 80 142/95 06/05/19 09:02 80 142/95 06/05/19 09:00 Room Air 06/05/19 08:09 65 18 97 Room Air 21 06/05/19 08:00 98.1 61 18 142/95 (111) 97 06/05/19 08:00 68 06/05/19 07:55 70 18 100 Room Air 21 68 16 98 06/05/19 04:00 62 06/05/19 04:00 97.7 71 16 137/95 (109) 98 06/05/19 02:46 99.0 06/05/19 01:28 76 18 100 Room Air 21 74 18 99 06/05/19 00:00 82 06/05/19 00:00 99.0 80 16 145/99 (114) 98 Intake and Output 06/04/19 06/05/19 19:00 07:00 Intake Total 720 ml 120 ml Output Total 300 ml Balance 420 ml 120 ml Intake Oral 720 ml 120 ml Output Urine Total 300 ml # Voids 2 2D Echo: LVEF 65%, RVSP 53 mmHg, Mild MR, Grade I LVDD Laboratory Tests Test 06/05/19 06:00 White Blood Count 3.7 K/UL (4.8-10.8) L Red Blood Count 4.86 M/UL (4.70-6.10) Hemoglobin 15.1 G/DL (14.2-18.0) Hematocrit 45.4 % (42.0-52.0) Mean Corpuscular Volume 93 FL (80-99) Mean Corpuscular Hemoglobin 31.1 PG (27.0-31.0) H Mean Corpuscular Hemoglobin Concent 33.4 G/DL (32.0-36.0) Red Cell Distribution Width 11.0 % (11.6-14.8) L Platelet Count 129 K/UL (150-450) L Mean Platelet Volume 9.8 FL (6.5-10.1) Neutrophils (%) (Auto) 35.6 % (45.0-75.0) L Lymphocytes (%) (Auto) 50.8 % (20.0-45.0) H Monocytes (%) (Auto) 7.4 % (1.0-10.0) Eosinophils (%) (Auto) 4.8 % (0.0-3.0) H Basophils (%) (Auto) 1.4 % (0.0-2.0) Sodium Level 135 MMOL/L (136-145) L Potassium Level 4.1 MMOL/L (3.5-5.1) Chloride Level 104 MMOL/L (98-107) Carbon Dioxide Level 26 MMOL/L (21-32) Anion Gap 5 mmol/L (5-15) Blood Urea Nitrogen 20 mg/dL (7-18) H Creatinine 1.4 MG/DL (0.55-1.30) H Estimat Glomerular Filtration Rate > 60 mL/min (>60) Glucose Level 334 MG/DL (74-106) #H Calcium Level 8.9 MG/DL (8.5-10.1) Objective HEENT: Normocephalic. Anicteric. Left eye edema, shut. Swelling of the lower and upper eyelids. Bilateral eye visual acuity within normal limits. NECK: JVP less than 5 cm. No carotid bruits. Carotid upstrokes 2+ bilaterally. CARDIOVASCULAR: Normal S1, S2. Regular rate and rhythm. No murmurs, gallops, or rubs. PMI is at fourth intercostal space in the midclavicular line. LUNGS: Clear to auscultation bilaterally. ABDOMEN: Soft, nontender, and nondistended. No hepatosplenomegaly. Positive bowel sounds. EXTREMITIES: No evidence of edema, clubbing, or cyanosis. Ed Goode MD Jun 05, 2019 23:52
[2019-06-06] VITALS: BP 134/87
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
[2019-06-06] MEDS: Albuterol ud Inhalation HHN SCH ×4 (01:00→19:00)
[2019-06-06] MEDS: Morphine Sulfate 2mg/ml Inj(IV/IM USE ONLY) IVP PRN ×5 (03:46→21:11)
[2019-06-06] MEDS: Guaifenesin/DM 10ml syrup ORAL PRN ×2 (03:49→12:11)
[2019-06-06 04:00] VITALS: BP 130/84
[2019-06-06] MEDS: NovoLOG Insulin Flexpen SUBQ SCH ×4 (06:28→21:08)
--- NOTE | 2019-06-06 07:30 | NUR ---
NURSE NOTES: Nurse report given by SALINAS Lloyd. Patient's sleeping in bed but easily awaken, no s/s of distress or SOB, lungs present with rhonchi sound, AO x 4, complains of generalized pain, rated 5/10 pain, morphine 2mg was already given at 0500, told patient to try nonpharmaceutical ways to ease pain. Bed low and locked, call light within reach, side rails x 3, padded for seizure precaution. IV is saline locked, patent and asymptomatic. Will continue to monitor.
--- NOTE | 2019-06-06 07:31 | NUR ---
HAND-OFF: Report given to Eliane NIÑO.
[2019-06-06 08:06] VITALS: BP 155/98
[2019-06-06] MEDS: Metoprolol Tartrate 100mg tab ORAL SCH ×2 (08:38→20:17)
[2019-06-06] MEDS: Aspirin EC 81mg tab ORAL SCH (08:38)
[2019-06-06] MEDS: Enoxaparin 40mg Inj SUBQ SCH (08:41)
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
--- NOTE | 2019-06-06 11:30 | NUR ---
NURSE NOTES: Left message to Dr. Yañez regarding patient is having fever, sweaty profusely, c/o feeling cold. Dr. Yañez ordered tylenol 650mg q4hr PRN. Order acknowledged and carried out.
[2019-06-06 12:00] VITALS: BP 140/96
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
[2019-06-06 16:00] VITALS: BP 131/90
--- NOTE | 2019-06-06 19:19 | Cardiology Progress Note ---
Assessment/Plan Assessment/Plan 1. Non-ST elevation myocardial infarction, in view of coronary artery disease and STEMI in the past, will get the update for transferring to [facility] for cardiac cath. Continue DAPT. Off lovenox. Continue atorvastatin 80 and metoprolol for double-product control. 2. History of diabetes mellitus, continue aspirin and statin. 3. History of hypertension, optimize metoprolol. Subjective Subjective Sinus rhythm at rate of 72. Objective Last 24 Hour Vital Signs Date Time Temp Pulse Resp B/P (MAP) Pulse Ox O2 Delivery O2 Flow Rate FiO2 06/06/19 17:52 99.3 06/06/19 16:00 99.3 72 19 131/90 (104) 95 06/06/19 16:00 71 06/06/19 13:57 75 20 100 Room Air 21 74 20 98 06/06/19 12:47 99.0 06/06/19 12:00 80 06/06/19 12:00 101.7 76 20 140/96 (111) 95 06/06/19 09:00 Room Air 06/06/19 08:43 78 18 100 Room Air 21 77 18 97 06/06/19 08:38 89 155/98 06/06/19 08:38 89 155/98 06/06/19 08:06 98.9 89 20 155/98 (117) 96 06/06/19 08:00 84 06/06/19 04:00 98.4 78 18 130/84 (99) 98 06/06/19 04:00 81 06/06/19 01:17 Room Air 21 06/06/19 00:00 72 06/06/19 00:00 98.9 69 16 134/87 (103) 96 06/05/19 21:00 Room Air 06/05/19 20:49 83 150/91 06/05/19 20:06 83 18 96 Room Air 21 06/05/19 20:06 87 18 100 Room Air 21 83 16 96 06/05/19 20:00 98.7 87 18 150/91 (110) 94 06/05/19 20:00 77 Intake and Output 06/05/19 06/06/19 19:00 07:00 Intake Total 800 ml Balance 800 ml Intake Oral 800 ml # Voids 5 3 2D Echo: LVEF 65%, RVSP 53 mmHg, Mild MR, Grade I LVDD Objective HEENT: Normocephalic. Anicteric. Left eye edema, shut. Swelling of the lower and upper eyelids. Bilateral eye visual acuity within normal limits. NECK: JVP less than 5 cm. No carotid bruits. Carotid upstrokes 2+ bilaterally. CARDIOVASCULAR: Normal S1, S2. Regular rate and rhythm. No murmurs, gallops, or rubs. PMI is at fourth intercostal space in the midclavicular line. LUNGS: Clear to auscultation bilaterally. ABDOMEN: Soft, nontender, and nondistended. No hepatosplenomegaly. Positive bowel sounds. EXTREMITIES: No evidence of edema, clubbing, or cyanosis. Ed Goode MD Jun 06, 2019 19:19
--- NOTE | 2019-06-06 19:22 | NUR ---
HAND-OFF: Report given to SALINAS Lloyd. Patient's stable. Plan of care endorsed.
[2019-06-06 20:00] VITALS: BP 143/101
--- NOTE | 2019-06-06 20:10 | NUR ---
NURSE NOTES: Notifed Dr. Yañez that patient has a temp of 102.2 oral. Instructed to give tylenol, cooling measures, and notify Dr. Barrera.
[2019-06-06] MEDS: Atorvastatin 80mg tab ORAL SCH (20:16)
--- NOTE | 2019-06-06 20:40 | NUR ---
NURSE NOTES: Received call from Dr. Vidal covering for Dr. Barrera, updated on patient's status and received orders for blood cultures, urine cultures, rocephin and vanco. Addendum: 06/07/19 at 0026 by Gabino Khalil RN NURSE NOTES: The time was 2129, not 2039
--- NOTE | 2019-06-06 21:00 | NUR ---
NURSE NOTES: Ice rag was applied to patient, tylenol was given.
[2019-06-06] MEDS: Zolpidem 5mg tab ORAL PRN (21:11)
--- NOTE | 2019-06-06 21:40 | NUR ---
NURSE NOTES: Received a phone call from Venice (patient's sister). Venice expressed her concern for her brother because she couldn't reach him on the patient's room phone. Explained to her that the patient isn't feeling well and did not want to speak with anyone. Patient had a difficult phone call earlier and was upset. Venice insisted on talking to her brother. Transferred the call to the patient's room, patient hung up. Venice phoned the nurse's station again and was upset that nobody was giving the patient the phone. Explained to her that patient did not want to speak with anyone and hung up and that staff cannot force him to talk on the phone. Then Venice stated that earlier when she called, people were transferring her call to the nurse's station and not transferring her call to her brother's phone. Explained to her that I did not know about that but the call may have been directed to the nurses station first and then transferred to the patient's room. If the patient was on the phone earlier, which he was, her call may not have gone through. Venice kept stating that staff was not letting the patient have the phone. Explained that he does have access to the phone and that we were in the room and he hung up because he is not feeling well and does not want to speak with anyone. Venice went on to ask if he was "ok." Told her that he's in the hospital so no he is not, he is ill. She then stated that she understands but is he awake and able to talk. Told Venice that he is awake and able to talk and make his needs known.
--- NOTE | 2019-06-06 22:15 | NUR ---
NURSE NOTES: Informed patient that his sister Venice and mother were very concerned. Patient was upset and reluctantly picked up the phone to call them back.
[2019-06-06] MEDS ORDERED: cefTRIAXone 1 GM in D5W 55 ML IVPB SCH (23:00)
[2019-06-06] MEDS ORDERED: Vancomycin 1.25gm/NS Premix IVPB ONE (23:30)
[2019-06-07] VITALS: BP 144/96
[2019-06-07] MEDS: Morphine Sulfate 2mg/ml Inj(IV/IM USE ONLY) IVP PRN ×4 (01:05→14:25)
[2019-06-07] MEDS: Albuterol ud Inhalation HHN SCH ×3 (01:41→14:35)
[2019-06-07] MEDS: Guaifenesin/DM 10ml syrup ORAL PRN (02:04)
[2019-06-07 04:00] VITALS: BP 168/98
[2019-06-07 05:56] VITALS: BP 153/80
[2019-06-07] MEDS: NovoLOG Insulin Flexpen SUBQ SCH ×2 (06:03→11:30)
[2019-06-07 06:50] LABS: BASOPHILS % (AUTO) 3.7 % (0.0-2.0); EOSINOPHILS % (AUTO) 3.4 % (0.0-3.0); HEMATOCRIT 45.4 % (42.0-52.0); HEMOGLOBIN 15.2 G/DL (14.2-18.0); LYMPHOCYTES % (AUTO) 38.5 % (20.0-45.0); MEAN CORPUSCULAR VOLUME 93 FL (80-99); MONOCYTES % (AUTO) 16.9 % (1.0-10.0); NEUTROPHILS % (AUTO) 37.5 % (45.0-75.0); PLATELET COUNT 108 K/UL (150-450); RED BLOOD COUNT 4.88 M/UL (4.70-6.10); RED CELL DISTRIBUTION WIDTH 11.2 % (11.6-14.8); WHITE BLOOD COUNT 3.5 K/UL (4.8-10.8)
[2019-06-07 07:00] LABS: ANION GAP 7 mmol/L (5-15); BLOOD UREA NITROGEN 13 mg/dL (7-18); CALCIUM 8.4 MG/DL (8.5-10.1); CARBON DIOXIDE 25 MMOL/L (21-32); CHLORIDE 99 MMOL/L (98-107); CREATININE 1.4 MG/DL (0.55-1.30); POTASSIUM 4.2 MMOL/L (3.5-5.1); SODIUM 131 MMOL/L (136-145)
--- NOTE | 2019-06-07 07:50 | NUR ---
HAND-OFF: Report given to Daisy NIÑO.
--- NOTE | 2019-06-07 08:30 | NUR ---
NURSE NOTES: pt has fever, and refused cooling measures. "I don't want anything cold, or ice."
[2019-06-07 08:31] VITALS: BP 128/77
--- NOTE | 2019-06-07 08:45 | NUR ---
NURSE NOTES: pt in bed having breathing treatment. Pt on court monitor, no signs of cardiac or respiratory distress at this time. Call light within reach, bed in lowest position and locked. Pt complaining of generalized pt 12/23. Will continuer to monitor and lab values.
[2019-06-07] MEDS: Enoxaparin 40mg Inj SUBQ SCH (09:00)
--- NOTE | 2019-06-07 09:45 | NUR ---
NURSE NOTES: Notified janneth Yañez about pt refusal to cooling measures as well as refusal of lovenox. He said he is hurting and doesn't want to be mean but he just want to be left along.
[2019-06-07] MEDS: Milk of Magnesia 30ml Ud ORAL PRN (09:47)
[2019-06-07] MEDS: Aspirin EC 81mg tab ORAL SCH (09:49)
[2019-06-07] MEDS: Metoprolol Tartrate 100mg tab ORAL SCH (09:49)
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
[2019-06-07] MEDS ORDERED: Vancomycin 1gm/D5W 275ml IVPB SCH ×2 (12:00)
[2019-06-07 12:08] VITALS: BP 138/81
--- NOTE | 2019-06-07 12:16 | NUR ---
NURSE NOTES: pt still has fever tylenol was given but he refusing cooling measures and he is covered from head to toe. Pt was told to uncover himself because this will help out with his fever and bodyache but he refused again.
[2019-06-07 12:43] VITALS: BP 138/81
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
[2019-06-07] MEDS ORDERED: metroNIDAZOLE 500mg tab ORAL SCH (14:00)
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
--- NOTE | 2019-06-07 14:20 | NUR ---
TRANSFER UPDATE TRANSFER ORDER NOTED CALLED [facility] AND SPOKE WITH SMOKING PIPE LINER, DORYS SAUL WITH AUTHORIZATION NUMBER FROM [facility]I SAUL THEY ARE WAITING FOR TELEMETRY BED TO BECOME AVAILABLE TRANSFER AUTHORIZATION FOR [facility] IS.............[id number] AUTH FOR [facility] IS....................[id number] Addendum: 06/07/19 at 1514 by COOKIE ORTEZ LVN [facility] SMOKING PIPE LINER T: [phone] SPOKE WITH DORYS
--- NOTE | 2019-06-07 14:45 | NUR ---
NURSE NOTES: Kcl with 10meq's is missing from bin, Addendum: 06/07/19 at 8 by Daisy Chiu RN wrong pt.
--- NOTE | 2019-06-07 16:55 | NUR ---
NURSE NOTES: pt talking to family and stated he does not want cardiac cath anymore his doctor, Doctor Dow at [phone] advised pt not to get another cardiac cath procedure because he has had them in the past. As per "my doctor said not to get anything else done because I have a 50% chance of dying. My heart is not strong enough yet so I don't want this procedure that is going to kill me
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
--- NOTE | 2019-06-07 18:55 | NUR ---
NURSE NOTES: send message to pharmacy looked multiple times for KCl w/10 meq's and is not in his bin or anywhere around. Addendum: 06/07/19 at 1958 by Daisy Chiu RN wrong pt.
--- NOTE | 2019-06-07 20:07 | NUR ---
NURSE NOTES: pt, is very anxious and is determined to go smoke a cigarette. He asked for monitor and IV to be taken off, to go down stairs to smoke. IV was DC and monitor was taken off from pt. Security tried to convinced pt. to stay but pt ignored security and medical staff. pt went down stairs to smoke.
--- NOTE | 2019-06-08 05:00 | Progress Note ---
DATE: 06/07/2019 SUBJECTIVE: The patient is in bed, withdrawn. He presents with anxiety and depressed mood. He continues to be on current medications, tolerating the Paxil and Seroquel. MENTAL STATUS EXAMINATION: Alert and oriented x3. Mood is depressed. Affect is constricted, congruent with mood. Thought process, linear and goal oriented. Thought content, no suicidal or homicidal ideation noted. Cognition is intact. Insight and judgment are fair. PLAN: 1. We will continue current medications. 2. Provide the patient with reality orientation and supportive therapy. Ector Watson M.D. DR: JOVITA JOB#: [id number] CC:
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
== END 2019-06-07 18:49 | disposition left against medical advice (07) | DRG 190 ==
LOC: EDUNIT# 05:17 → EDBD 05:17 → EMR 05:28 → 2E 08:13 → EDBEDREQ 13:03
DX: I21.4 Non-ST elevation (NSTEMI) myocardial infarction (principal); I25.10 Atherosclerotic heart disease of native coronary artery without angina pectoris; E46 Unspecified protein-calorie malnutrition; Z68.27 Body mass index [BMI] 27.0-27.9, adult; E11.9 Type 2 diabetes mellitus without complications; F14.10 Cocaine abuse, uncomplicated; F17.200 Nicotine dependence, unspecified, uncomplicated; S00.12XA Contusion of left eyelid and periocular area, initial encounter; Y04.2XXA Assault by strike against or bumped into by another person, initial encounter; I25.83 Coronary atherosclerosis due to lipid rich plaque; Z95.5 Presence of coronary angioplasty implant and graft; I10 Essential (primary) hypertension; K21.9 Gastro-esophageal reflux disease without esophagitis; I44.7 Left bundle-branch block, unspecified; I25.2 Old myocardial infarction; H11.32 Conjunctival hemorrhage, left eye; Z79.4 Long term (current) use of insulin
CPT/HCPCS: 36415; 70450; 70486; 71045; 72125; 80048; 80053; 82962; 83036; 84484; 85025; 85610; 85730; 86703; 87040; 87081; 87086; 90471; 90715; 93005; 93306; 94640; 94664; 96372; 96374; 96375; 99285; J1815